=== PATIENT | female | born 1985 | race Caucasian/White ===

== ENCOUNTER 2016-08-13 09:51 | Emergency (ER) | payer OTHER ==
[~2016-08-13] VITALS: Ht 152.4 cm; Wt 85.7 kg
[~2016-08-13 09:51] MED LIST: BREAST PUMP MC; GLYBURIDE2.5 MG PO
[2016-08-13 10:33] LABS: ADD MIUA? YES; BILIRUBIN NEGATIVE; BLOOD NEGATIVE; COLOR YELLOW ((YELLOW)); GLUCOSE (STRIP) NEGATIVE; KETONES NEGATIVE; LEUKOCYTES LARGE; NITRITE NEGATIVE; PROTEIN (STRIP) 30; SPECIFIC GRAVITY 1.023 (1.000-1.030); UROBILINOGEN 0.2 MG/DL (0.2-1.0)
[2016-08-13 10:43] LABS: BACTERIA RARE /HPF; EPITHELIAL CELLS 1+ /HPF; MUCUS 1+ /LPF; RED BLOOD CELLS 0-5 /HPF (0-5); UCUL ADDED? NO; WHITE BLOOD CELLS 15-20 /HPF (0-5)
[2016-08-13] MEDS ORDERED: SPRINTEC1 EACH PO (11:23)
[2016-08-13 12:22] LABS: HEMATOCRIT 38.5 % (36.0-46.0); MCH 30.2 PG (29.0-34.0); MCHC 33.5 G/DL (30.0-36.0); MCV 90.2 FL (83-99); MEAN PLAT.VOLUME 9.1 uM^3 (9.5-12.4); PLATELET COUNT 290 K/uL (156-360); RBC DIS.WIDTH-CV 13.3 % (11.8-14.6); RBC DIS.WIDTH-SD 43.6 % (39-53); RED BLOOD COUNT 4.27 M/uL (3.80-5.20); WHITE BLOOD COUNT 8.2 K/uL (4.1-10.2)
[2016-08-13 12:44] LABS: QUANTITATIVE HCG < 4.0 MIU/ML
[2016-08-13 13:05] LABS: ANION GAP 10 MEQ/L (2-14); CHLORIDE 103 MEQ/L (99-109); POTASSIUM 4.1 MEQ/L (3.7-5.4); SAMPLE HEMOLYSIS CHECK 0; SAMPLE ICTERIC CHECK 0; SAMPLE LIPEMIA CHECK 0; SODIUM 136 MEQ/L (136-147); TOTAL BILIRUBIN 0.5 MG/DL (0.0-1.0)
[2016-08-13 13:11] LABS: ALKALINE PHOSPHATASE 73 IU/L (3-129); GFR ESTIMATE (CALCULATED) > 59 mL/min/; GLUCOSE 105 mg/dL (70-99); LIPASE 31 U/L (1.0-51.0); UREA NITROGEN (BUN) 13 mg/dL (9-23)
[2016-08-13] MEDS ORDERED: CIPRO500 MG PO (13:59)
[2016-08-13] MEDS ORDERED: NORCO 5/3251 TABLET PO (13:59)
[2016-08-13] MEDS ORDERED: NAPROSYN500 MG PO (13:59)
[2016-08-13 14:27] VITALS: BP 122/85
== END 2016-08-13 14:28 | disposition home or self-care (01) ==
LOC: EME 09:51
PROVIDERS: Physician Assistant
DX: M54.41 Lumbago with sciatica, right side (principal); N39.0 Urinary tract infection, site not specified; Z72.0 Tobacco use; Z87.442 Personal history of urinary calculi
CPT/HCPCS: 74176; 80053; 81003; 83690; 84702; 85027; 99281; 99284

== ENCOUNTER 2017-08-02 14:39 | Emergency (ER) | payer OTHER ==
[~2017-08-02] VITALS: Ht 149.9 cm; Wt 81.5 kg
[~2017-08-02 14:39] MED LIST changes: +CIPRO500 MG PO; +NAPROSYN500 MG PO; +NORCO 5/3251 TABLET PO; +SPRINTEC1 EACH PO
[2017-08-02 15:14] LABS: HEMATOCRIT 37.2 % (36.0-46.0); HEMOGLOBIN 12.6 G/DL (11.9-15.5); MCH 29.9 PG (29.0-34.0); MCHC 33.9 G/DL (30.0-36.0); MCV 88.2 FL (83-99); PLATELET COUNT 319 K/uL (156-360); RBC DIS.WIDTH-CV 13.4 % (11.8-14.6); RBC DIS.WIDTH-SD 43.1 % (39-53); RED BLOOD COUNT 4.22 M/uL (3.80-5.20); WHITE BLOOD COUNT 6.9 K/uL (4.1-10.2)
[2017-08-02 15:23] LABS: CHLORIDE 107 mEq/L (99-109); POTASSIUM 4.2 mEq/L (3.7-5.4); SODIUM 137 mEq/L (136-147)
[2017-08-02 15:26] LABS: GLUCOSE 78 mg/dL (70-99); TOTAL PROTEIN 7.4 g/dL (6.4-8.3)
[2017-08-02 15:28] LABS: TOTAL BILIRUBIN 0.5 mg/dL (0.0-1.0)
[2017-08-02 15:29] LABS: ALKALINE PHOSPHATASE 65 IU/L (3-129); CREATININE 0.7 mg/dL (0.6-1.3); GFR ESTIMATE (CALCULATED) > 59 mL/min/
[2017-08-02 15:30] LABS: UREA NITROGEN (BUN) 14 mg/dL (9-23)
[2017-08-02 15:31] LABS: AST (GOT) 13 IU/L (2-34)
[2017-08-02 15:32] LABS: ALT (GPT) 10 IU/L (3-49)
[2017-08-02 15:38] LABS: QUANTITATIVE HCG < 4.0 MIU/ML
[2017-08-02 16:32] LABS: LIPASE 27 U/L (1.0-51.0)
[2017-08-02 17:37] LABS: APPEARANCE SL.HAZY ((CLEAR)); BILIRUBIN NEGATIVE; BLOOD NEGATIVE; COLOR YELLOW ((YELLOW)); GLUCOSE (STRIP) NEGATIVE; KETONES NEGATIVE; LEUKOCYTES LARGE; NITRITE NEGATIVE; PROTEIN (STRIP) NEGATIVE; SPECIFIC GRAVITY 1.019 (1.000-1.030); UROBILINOGEN 0.2 MG/DL (0.2-1.0)
[2017-08-02 17:42] LABS: BACTERIA RARE /HPF; EPITHELIAL CELLS 1+ /HPF; MUCUS TRACE /LPF; UCUL ADDED? YES; WHITE BLOOD CELLS 20-30 /HPF (0-5)
[2017-08-02] MEDS ORDERED: FLOMAX0.4 MG PO (18:31)
[2017-08-02] MEDS ORDERED: PERCOCET 5/31 TABLET PO (18:31)
[2017-08-02] MEDS ORDERED: ZOFRAN4 MG SL (18:31)
[2017-08-02] MEDS ORDERED: CIPRO500 MG PO (18:31)
[2017-08-02 19:33] VITALS: BP 119/76
== END 2017-08-02 19:34 | disposition home or self-care (01) ==
LOC: EME 14:39
DX: N13.6 Pyonephrosis (principal); Z87.442 Personal history of urinary calculi; Z85.850 Personal history of malignant neoplasm of thyroid; F17.200 Nicotine dependence, unspecified, uncomplicated; Z88.2 Allergy status to sulfonamides
CPT/HCPCS: 74176; 80053; 81003; 83690; 84702; 85027; 87086; 99281; 99284; J0696; J1885; J2405; J7030

== ENCOUNTER 2017-12-25 23:44 | Emergency (ER) | payer OTHER ==
[~2017-12-25] VITALS: Ht 152.4 cm; Wt 85.2 kg
[~2017-12-25 23:44] MED LIST changes: +FLOMAX0.4 MG PO; +PERCOCET 5/31 TABLET PO; +ZOFRAN4 MG SL
[2017-12-26 00:12] LABS: APPEARANCE CLOUDY ((CLEAR)); BILIRUBIN NEGATIVE; BLOOD LARGE; COLOR YELLOW ((YELLOW)); GLUCOSE (STRIP) NEGATIVE; KETONES NEGATIVE; LEUKOCYTES MODERATE; NITRITE NEGATIVE; PROTEIN (STRIP) 30; SPECIFIC GRAVITY 1.014 (1.000-1.030); UROBILINOGEN 0.2 MG/DL (0.2-1.0)
[2017-12-26 00:21] LABS: HEMATOCRIT 33.5 % (36.0-46.0); HEMOGLOBIN 11.5 G/DL (11.9-15.5); MCH 32.2 PG (29.0-34.0); MCHC 34.3 G/DL (30.0-36.0); MCV 93.8 FL (83-99); PLATELET COUNT 302 K/uL (156-360); RBC DIS.WIDTH-CV 13.8 % (11.8-14.6); RBC DIS.WIDTH-SD 47.2 % (39-53); RED BLOOD COUNT 3.57 M/uL (3.80-5.20); WHITE BLOOD COUNT 8.4 K/uL (4.1-10.2)
[2017-12-26 00:27] LABS: BACTERIA NONE SEEN /HPF; EPITHELIAL CELLS 1+ /HPF; MUCUS TRACE /LPF; RED BLOOD CELLS TNTC /HPF (0-5); UCUL ADDED? YES; WHITE BLOOD CELLS TNTC /HPF (0-5)
[2017-12-26 00:32] LABS: CHLORIDE 104 mEq/L (99-109); POTASSIUM 4.1 mEq/L (3.7-5.4); SODIUM 139 mEq/L (136-147)
[2017-12-26 00:33] LABS: GLUCOSE 97 mg/dL (70-99)
[2017-12-26 00:37] LABS: CREATININE 0.8 mg/dL (0.6-1.3); GFR ESTIMATE (CALCULATED) > 59 mL/min/
[2017-12-26 00:38] LABS: UREA NITROGEN (BUN) 10 mg/dL (9-23)
[2017-12-26 00:45] LABS: QUANTITATIVE HCG < 4.0 MIU/ML
[2017-12-26] MEDS ORDERED: KEFLEX500 MG PO (05:00)
[2017-12-26] MEDS ORDERED: MOTRIN600 MG PO (05:01)
[2017-12-26 05:18] VITALS: BP 115/78
== END 2017-12-26 05:19 | disposition home or self-care (01) ==
LOC: EME 23:44
DX: R10.32 Left lower quadrant pain (principal); N39.0 Urinary tract infection, site not specified; K76.0 Fatty (change of) liver, not elsewhere classified; N20.0 Calculus of kidney; Z87.442 Personal history of urinary calculi; Z88.2 Allergy status to sulfonamides; Z85.850 Personal history of malignant neoplasm of thyroid; Z72.0 Tobacco use
CPT/HCPCS: 74176; 80048; 81003; 84702; 85027; 87077; 87086; 87186; 99281; 99284; J1885; J2405; J7030